=== PATIENT | female | born 1990 | race Caucasian/White ===

== ENCOUNTER 2017-05-24 23:22 | Emergency (ER) | payer MEDICAID, OTHER ==
[2017-05-24 23:22] VITALS: BMI 24.7
[2017-05-24 23:40] VITALS: RESP 18
[2017-05-25 00:15] LABS: RBC URINE < 1 /hpf (0-3); URINE BILIRUBIN NEGATIVE (NEGATIVE); URINE BLOOD 1+ (NEGATIVE); URINE COLOR Colorless (YELLOW); URINE GLUCOSE (UA) NORMAL (Normal); URINE KETONE NEGATIVE (NEGATIVE); URINE LEUKOCYTE ESTERASE NEG Leu/uL (Negative); URINE PROTEIN NEGATIVE (NEGATIVE); URINE UROBILINOGEN NORMAL mg/dL (0.2-1.0)
--- NOTE | 2017-05-25 00:30 | C.PDOC ---
History Of Present Illness 27 year old female presents to the ER with a complaint of dysuria, urinary frequency, and urinary urgency for the past few days. Patient is currently breast feeding; denies fever, chills, nausea, vomiting, back pain, or Hx of UTI. Chief Complaint (Nursing): Female Genitourinary History Per: Patient History/Exam Limitations: no limitations Onset/Duration Of Symptoms: Days Current Symptoms Are (Timing): Still Present Quality Of Discomfort: Unable To Describe Associated Symptoms: Urinary Symptoms (Dysuria, Frequency, Urgency) Alleviating Factors: None Recent travel outside of the [place]: No Abnormal Vaginal Bleeding: No Past Medical History Reviewed: Historical Data, Nursing Documentation, Vital Signs Vital Signs: Last Vital Signs Temp 97.6 F 05/25/17 00:59 Pulse 78 05/25/17 00:59 Resp 18 05/25/17 00:59 BP 110/72 05/25/17 00:59 Pulse Ox 100 05/25/17 00:59 - Medical History PMH: No Chronic Diseases - [facility] Procedures DELIVERY OF PRODUCTS OF CONCEPTION, EXTERNAL APPROACH (04/24/16) DRAINAGE OF AMNIOTIC FL, THERAP FROM POC, VIA OPENING (04/24/16) REPAIR PERINEUM MUSCLE, OPEN APPROACH (04/24/16) REPAIR PERINEUM SKIN, EXTERNAL APPROACH (04/24/16) Family History: States: Unknown Family Hx - Social History Hx Alcohol Use: No Hx Substance Use: No - Immunization History Hx Tetanus Toxoid Vaccination: No Hx Influenza Vaccination: No Hx Pneumococcal Vaccination: No Review Of Systems Constitutional: Negative for: Fever, Chills Gastrointestinal: Negative for: Nausea, Vomiting Genitourinary: Positive for: Dysuria, Frequency, Other (Urgency) Musculoskeletal: Negative for: Back Pain Physical Exam - Physical Exam Appears: Non-toxic, No Acute Distress Skin: Normal Color, Warm, Dry Head: Atraumatic, Normacephalic Eye(s): bilateral: Normal Inspection Oral Mucosa: Moist Neck: Normal, Supple Chest: Symmetrical, No Tenderness Cardiovascular: Rhythm Regular Respiratory: Normal Breath Sounds, No Rales, No Rhonchi, No Wheezing, Other ( Coarse cough) Gastrointestinal/Abdominal: Soft, No Tenderness Neurological/Psych: Oriented x3, Normal Speech ED Course And Treatment O2 Sat by Pulse Oximetry: 99 (Room air) Pulse Ox Interpretation: Normal Medical Decision Making Medical Decision Making: Urinalysis ordered, results were negative for UTI Disposition - Disposition Referrals: [facility] at [facility] [Outside] Disposition: HOME/ ROUTINE Disposition Time: 00:40 Condition: GOOD Additional Instructions: take metronidazol gel as prescribed Prescriptions: metroNIDAZOLE 0.75% [Metrogel Cream] 9 applic VAG DAILY 5 Days #5 tube Forms: [employer] (Swedish) - Clinical Impression Clinical Impression: Vaginitis - Scribe Statement The provider has reviewed the documentation as recorded by the Scribvalentin Galvan All medical record entries made by the Scribe were at my direction and personally dictated by me. I have reviewed the chart and agree that the record accurately reflects my personal performance of the history, physical exam, medical decision making, and the department course for this patient. I have also personally directed, reviewed, and agree with the discharge instructions and disposition.
[2017-05-25 01:00] VITALS: BP 110/72; PULSE 78; TEMP 97.6
[2017-05-25 02:06] VITALS: O2SAT 99
== END 2017-05-25 01:01 | disposition home or self-care (01) ==
LOC: C.ER 23:22
DX: N76.0 Acute vaginitis (principal)

== ENCOUNTER 2017-05-25 15:04 | Emergency (ER) | payer OTHER ==
[2017-05-25 15:04] VITALS: BMI 24.7
[2017-05-25 15:37] VITALS: BP 123/86; PULSE 80; RESP 20; TEMP 98; O2SAT 100
--- NOTE | 2017-05-25 15:56 | C.PDOC ---
History Of Present Illness Eugenia De Leon is a 27 year old female who presents complaining of vaginal itching and pain for 1 day. Pt is sexually active with her . Denies any associated dysuria, nausea, vomiting, diarrhea, or abdominal pain. Patient has also had a cough for 5 days, which has been productive of yellow phlegm. Patient was seen earlier here today and prescribed vaginal Metrogel cream. PMD: None provided Time Seen by Provider: 05/25/17 15:51 Chief Complaint (Nursing): Female Genitourinary History Per: Patient History/Exam Limitations: language barrier (speaks Elisa, translated via [employer] service) Onset/Duration Of Symptoms: Days (x 1) Current Symptoms Are (Timing): Still Present Past Medical History Reviewed: Historical Data, Nursing Documentation, Vital Signs Vital Signs: Last Vital Signs Temp 98 F 05/25/17 15:23 Pulse 80 05/25/17 15:23 Resp 20 05/25/17 17:07 BP 123/86 05/25/17 15:23 Pulse Ox 100 05/25/17 20:10 - Medical History PMH: No Chronic Diseases Surgical History: No Surg Hx - [facility] Procedures DELIVERY OF PRODUCTS OF CONCEPTION, EXTERNAL APPROACH (04/24/16) DRAINAGE OF AMNIOTIC FL, THERAP FROM POC, VIA OPENING (04/24/16) REPAIR PERINEUM MUSCLE, OPEN APPROACH (04/24/16) REPAIR PERINEUM SKIN, EXTERNAL APPROACH (04/24/16) Family History: States: Unknown Family Hx - Social History Hx Alcohol Use: No Hx Substance Use: No - Immunization History Hx Tetanus Toxoid Vaccination: No Hx Influenza Vaccination: No Hx Pneumococcal Vaccination: No Review Of Systems Except As Marked, All Systems Reviewed And Found Negative. Respiratory: Positive for: Cough, Sputum Gastrointestinal: Negative for: Nausea, Vomiting, Abdominal Pain, Diarrhea Genitourinary: Positive for: Other (Vaginal itching and pain). Negative for: Dysuria, Frequency Physical Exam - Physical Exam Appears: Non-toxic, No Acute Distress Skin: Normal Color, Warm, Dry Head: Atraumatic, Normacephalic Eye(s): bilateral: Normal Inspection, PERRL, EOMI Nose: Normal Cardiovascular: Rhythm Regular Respiratory: Normal Breath Sounds, Rhonchi (mild), No Wheezing Pelvic: Normal External Exam, No Vaginal Bleeding, No Vaginal Discharge, No Adnexal Tenderness, No Mass Neurological/Psych: Oriented x3, Normal Speech ED Course And Treatment O2 Sat by Pulse Oximetry: 100 (RA) Pulse Ox Interpretation: Normal Medical Decision Making Medical Decision Making: Time: 15:49 Initial Impression: 27 year old female with vaginal itching Initial Plan: * Urine test * Urinalysis Patient given Diflucan PO in the ED. Chlamydia/GC ordered. Patient will be discharged with prescription for Zithromax. She will follow up in the clinic for chlamydia/GC results. There is agreement to discharge plan. Return if symptoms persist or worsen. Disposition Counseled Patient/Family Regarding: Studies Performed, Diagnosis, Need For Followup, Rx Given - Disposition Referrals: [facility] [Outside] [facility] [Outside] Disposition: HOME/ ROUTINE Disposition Time: 16:47 Condition: STABLE Additional Instructions: FOLLOW UP IN CLINIC FOR RE-EVALUATION. CHLAMYDIA AND GONORRHEA TESTS ORDERED AND PENDING. IF SYMPTOMS GET WORSE OR ANY NEW CONCERNING SYMPTOMS DEVELOP RETURN TO ED. Prescriptions: Azithromycin [Zithromax] 250 mg PO DAILY #6 tab Instructions: Acute Bronchitis (ED), Vaginitis (ED) Forms: [employer] (Macedonian) - Clinical Impression Clinical Impression: Vaginitis, Bronchitis - PA / [employer] RIDER / Resident Statement MD/DO has reviewed & agrees with the documentation as recorded. - Scribe Statement The provider has reviewed the documentation as recorded by the Scribvalentin Norton All medical record entries made by the Ericibvalentin were at my direction and personally dictated by me. I have reviewed the chart and agree that the record accurately reflects my personal performance of the history, physical exam, medical decision making, and the department course for this patient. I have also personally directed, reviewed, and agree with the discharge instructions and disposition.
[2017-05-25 16:11] LABS: RBC URINE 12 /hpf (0-3); URINE BACTERIA MANY (<OCC); URINE BILIRUBIN NEGATIVE (NEGATIVE); URINE BLOOD 2+ (NEGATIVE); URINE COLOR Yellow (YELLOW); URINE GLUCOSE (UA) NORMAL (Normal); URINE KETONE NEGATIVE (NEGATIVE); URINE LEUKOCYTE ESTERASE NEG Leu/uL (Negative); URINE PROTEIN NEGATIVE (NEGATIVE); URINE UROBILINOGEN NORMAL mg/dL (0.2-1.0); WBC URINE 2 /hpf (0-5)
== END 2017-05-25 17:07 | disposition home or self-care (01) ==
LOC: C.ER 15:04
DX: N76.0 Acute vaginitis (principal); J40 Bronchitis, not specified as acute or chronic

== ENCOUNTER 2017-05-26 11:41 | Emergency (ER) | payer OTHER ==
[2017-05-26 11:41] VITALS: BMI 24.7
[2017-05-26 11:49] VITALS: RESP 20; O2SAT 100
[2017-05-26 12:15] LABS: URINE BILIRUBIN NEGATIVE (NEGATIVE); URINE BLOOD 1+ (NEGATIVE); URINE COLOR Colorless (YELLOW); URINE GLUCOSE (UA) NORMAL (Normal); URINE KETONE NEGATIVE (NEGATIVE); URINE LEUKOCYTE ESTERASE NEG Leu/uL (Negative); URINE PROTEIN NEGATIVE (NEGATIVE); URINE UROBILINOGEN NORMAL mg/dL (0.2-1.0); WBC URINE 1 /hpf (0-5)
[2017-05-26] MEDS ORDERED: cefTRIAXone (Rocephin) 250 mg Inj IM STA (12:50)
--- NOTE | 2017-05-26 13:54 | C.PDOC ---
History Of Present Illness 27 year old female presents to the ER with a complaint of dysuria, urinary frequency, and urinary urgency for three days. (+) white discharge. (-) itching . Admits to unprotected intercourse 3-4 days ago with her . Patient is currently breast feeding; denies fever, abdominal pain, nausea, vomiting, back pain, sob. Pt was evaluated by [facility] yesterday, treated with Flagyl suppositories , Zpak and Diflucan. Pt notes symptoms havent improved. Production Checker number: [id number] Time Seen by Provider: 05/26/17 11:55 Chief Complaint (Nursing): Female Genitourinary History Per: Patient, Associate Research Scientist History/Exam Limitations: language barrier Onset/Duration Of Symptoms: Days Current Symptoms Are (Timing): Still Present Quality Of Discomfort: Burning Past Medical History Vital Signs: Last Vital Signs Temp 98.2 F 05/26/17 13:51 Pulse 86 05/26/17 13:51 Resp 20 05/26/17 13:51 BP 124/86 05/26/17 13:51 Pulse Ox 100 05/26/17 13:54 - [facility] Procedures DELIVERY OF PRODUCTS OF CONCEPTION, EXTERNAL APPROACH (04/24/16) DRAINAGE OF AMNIOTIC FL, THERAP FROM POC, VIA OPENING (04/24/16) REPAIR PERINEUM MUSCLE, OPEN APPROACH (04/24/16) REPAIR PERINEUM SKIN, EXTERNAL APPROACH (04/24/16) Family History: States: Unknown Family Hx - Social History Hx Alcohol Use: No Hx Substance Use: No - Immunization History Hx Tetanus Toxoid Vaccination: No Hx Influenza Vaccination: No Hx Pneumococcal Vaccination: No Review Of Systems Except As Marked, All Systems Reviewed And Found Negative. Genitourinary: Positive for: Dysuria, Frequency, Vaginal Discharge Physical Exam - Physical Exam Appears: Well, Non-toxic, No Acute Distress Skin: Normal Color, Warm, Dry Head: Atraumatic, Normacephalic Eye(s): bilateral: Normal Inspection, EOMI Nose: Normal Neck: Normal Chest: Symmetrical Cardiovascular: Rhythm Regular Respiratory: Normal Breath Sounds Gastrointestinal/Abdominal: Normal Exam, Soft, No Tenderness Back: Normal Inspection, No CVA Tenderness, No Vertebral Tenderness Pelvic: Normal External Exam, No Cervical Motion Tenderness, Other ((+) minimal white discharge with inflammation of cervix; Media Supervisor AMISH Quintero) Extremity: Normal ROM Neurological/Psych: Oriented x3 ED Course And Treatment O2 Sat by Pulse Oximetry: 100 Progress Note: Bladder Scan : 141 cc. Rocephin 250mg IM ordered. Pt was instructed to finish antiobiotic and follow up with [facility] in 1-2 days or return to ER if symptoms persist or worsen. Case discussed with maegan Davenport plan and treatment. Pt was not given Doxy since she is and already on Azithromycin. Disposition - Disposition Referrals: [facility] at [facility] [Outside] Donnie Caba MD [Staff Provider] - Disposition: HOME/ ROUTINE Disposition Time: 14:13 Condition: STABLE Additional Instructions: Follow up with your [facility] and urologist in 1-2 days. Return to ER if symptoms persist or worsen. Prescriptions: Phenazopyridine HCl [Pyridium] 100 mg PO TID #6 tablet Instructions: Cervicitis (ED) Forms: [employer] (Amharic) - Clinical Impression Clinical Impression: Cervicitis
[2017-05-26 13:55] VITALS: BP 124/86; PULSE 86; TEMP 98.2
== END 2017-05-26 13:55 | disposition home or self-care (01) ==
LOC: C.ER 11:41
DX: N72 Inflammatory disease of cervix uteri (principal)
CPT/HCPCS: 81001; 84703; 87086; 87491; 87591; 96372; 99284; J0696